=== PATIENT | female | born 1930 | race Two or more races ===

== ENCOUNTER 2016-11-24 11:46 | Emergency (ER) | payer SELFPAY ==
--- NOTE | ~2016-11-24 | ER ---
PATIENT'S NAME: RAMAN MUELLER [facility] AGE: 86 Y [address] ROOM: [place] [id number] LOCATION: ED ADMIT DATE: 11/24/2016 ER/Outpatient Report DISCHARGE DATE: 11/24/2016 FAMILY PHYSICIAN: PHYSICIAN, NO ATTENDING PHYSICIAN: Maria Teresa Clark Time Of Arrival: 1146 hours. Time Of Evaluation: 1156 hours. CHIEF COMPLAINT: Ear pain and drainage. HISTORY OF PRESENT ILLNESS: The patient is an 86-year-old female, who presents to the emergency department today with chief complaint of ear pain and drainage. She reports this started one day prior to arrival. She reports she has had some bilateral ear pain. She noted some bloody drainage from the right ear one day ago. She denies any use of Q-Tips, but daughter does report the patient has had Q-Tips accessible and does have a history of some dementia and does not quite remember which she is doing at times. She apparently did have her ears cleaned [facility] due to a large amount of wax build up about 3 to 4 weeks ago. Denies any fever. She has had a dull frontal headache on and off. Denies any pain at this time. The pain of ear is currently 4/10 in severity. Denies any fevers or chills. No dental pain. No sinus pain. PAST MEDICAL HISTORY: Blind, left eye. PAST SURGICAL HISTORY: None. SOCIAL HISTORY: The patient denies any tobacco, alcohol, or illicit drug use. ALLERGIES: NO KNOWN DRUG ALLERGIES. MEDICATIONS: Please see list. PRIMARY CARE DOCTORS: [facility]. REVIEW OF SYSTEMS: All systems are reviewed by myself and negative with the exception of those PATIENT'S NAME: RAMAN MUELLER [facility] AGE: 86 Y [address] ROOM: [place] [id number] LOCATION: [facility] ADMIT DATE: 11/24/2016 ER/Outpatient Report DISCHARGE DATE: 11/24/2016 FAMILY PHYSICIAN: PHYSICIAN, NO ATTENDING PHYSICIAN: Maria Teresa Clark discussed in the HPI and past medical history. PHYSICAL EXAMINATION: VITAL SIGNS: Weight 57.3 kg. Blood pressure 116/75, pulse 74, respiratory rate 18, temperature 98.7, oxygen saturation 93% on room air. GENERAL: The patient is an 86-year-old female, who appears stated age, in no acute distress. HEENT: Head: Normocephalic, atraumatic. Left pupil is cloudy; otherwise, right pupil is normal and reactive. Nares are patent bilaterally. Left TM appears normal. Right TM, the external canal does have evidence of trauma with bleeding noted when ear wax is removed. TM what is visualized appears okay. Oropharynx is clear. NECK: Supple. There is no nuchal rigidity. CARDIOVASCULAR: Regular rate and rhythm. No murmurs, rubs, or gallops. LUNGS: Clear to auscultation bilaterally. No wheezes, rales, or rhonchi. ABDOMEN: Soft, nontender, and nondistended. No rebound, rigidity, or guarding. MUSCULOSKELETAL: The patient moves all 4 extremities. SKIN: Warm and dry. There are no rashes or lesions noted. LABORATORY DATA AND X-RAYS: None. IMPRESSION: 1. Bleeding from right external canal of the ear. 2. Initial visit. EMERGENCY DEPARTMENT COURSE: The patient was brought back to the examination room. Seen and evaluated by myself. The patient's ears are evaluated. Ear curette is used to remove the clotted area as well as ear wax. The TM is not completely visualized. There is a question whether the patient had trauma to the ear. I have discussed with the patient through an computer video game designer both the history and physical as well as plan. I have recommended she follows up with Ear, Nose, and Throat doctor in 2-3 days for re-evaluation. We did write a prescription for ciprofloxacin suspension, however, pharmacy has called and said that is too expensive, so we did give Cortisporin Otic suspension. DISPOSITION: The patient is discharged to follow up with Ear, Nose, and Throat in 2-3 days. MARIA TERESA CLRAK DO PATIENT'S NAME: RAMAN MUELLER, [facility] AGE: 86 Y [address] ROOM: [place] [address] LOCATION: ED ADMIT DATE: 11/24/2016 ER/Outpatient Report DISCHARGE DATE: 11/24/2016 FAMILY PHYSICIAN: PHYSICIAN, NO ATTENDING PHYSICIAN: Maria Teresa Clark/modl /[id number] d: 11/24/16 1943 t: 11/29/16 1013, OUTPATIENT REPORT
== END 2016-11-24 12:41 ==
LOC: GMED 11:46
DX: H92.21 Otorrhagia, right ear (principal)